=== PATIENT | female | born 1990 | race Caucasian/White ===

== ENCOUNTER 2017-12-11 23:50 | Outpatient (CLI) | payer OTHER ==
[2017-12-12 02:08] LABS: ADD UMIC YES; UR ASCORBIC ACID NEGATIVE (NEGATIVE); UR BACTERIA FEW /HPF (NONE SEEN); UR BILIRUBIN (Dip) NEGATIVE (NEGATIVE); UR BLOOD (Dip) NEGATIVE (NEGATIVE); UR CLARITY CLEAR (CLEAR); UR COLOR STRAW (YELLOW); UR GLUCOSE (Dip) NEGATIVE (NEGATIVE); UR KETONES (Dip) NEGATIVE (NEGATIVE); UR LEUKOCYTE ESTERASE (Dip) 2+ Leu/ul (NEGATIVE); UR NITRITE (Dip) NEGATIVE (NEGATIVE); UR RBC 0 /HPF (0-5); UR SPECIFIC GRAVITY (Dip) 1.004 (1.003-1.030); UR TOTAL PROTEIN (Dip) NEGATIVE (NEGATIVE); UR UROBILINOGEN (Dip) NEGATIVE (NEGATIVE); UR WBC 3 /HPF (0-5)
== END 2017-12-12 01:50 | disposition home or self-care (01) ==
LOC: L-D 23:50 → OBT 23:50 → L-D 12-12 00:11 → OBT 12-12 01:50
DX: O36.8130 Decreased fetal movements, third trimester, not applicable or unspecified (principal); O09.523 Supervision of elderly multigravida, third trimester; Z3A.38 38 weeks gestation of pregnancy
CPT/HCPCS: 76818; 81001; 87086

== ENCOUNTER 2017-12-21 11:28 | Inpatient (IN) | payer OTHER ==
[2017-12-21] MEDS: OXYTOCIN 30 UNITS/LR 500 ML IV ×2 (11:51→12:12)
[2017-12-21] MEDS: LACTATED RINGER'S 1,000 ML IV (11:52)
[2017-12-21] MEDS: IBUPROFEN 600 MG TAB PO ×3 (11:57→23:29)
[2017-12-21] MEDS ORDERED: METHYLERGONOVINE 0.2 MG INJ IM ×2 (12:00→13:30)
[2017-12-21] MEDS ORDERED: CARBOPROST 250 MCG INJ IM ×2 (12:00→13:30)
[2017-12-21] MEDS ORDERED: LIDOCAINE 1% (MPF) 30 ML INJ INJ (12:00)
[2017-12-21] MEDS ORDERED: OXYTOCIN 30 UNITS/LR 500 ML IV ×2 (12:00→13:30)
[2017-12-21] MEDS ORDERED: BUTORPHANOL 2 MG INJ IV (12:00)
[2017-12-21] MEDS ORDERED: MISOPROSTOL 200 MCG TAB PR ×2 (12:00→13:30)
[2017-12-21 12:31] LABS: ADD MAN DIFF? NO
[2017-12-21 12:34] LABS: BASOPHILS % 0.3 % (0.0-2.0); EOSINOPHILS % 0.3 % (0.0-7.0); HEMATOCRIT 37.1 % (37.0-47.0); HEMOGLOBIN 12.3 g/dl (12.0-16.0); LYMPHOCYTES # 3.6 10^3/ul (0.8-2.9); MEAN CORPUSCULAR HEMOGLOBIN 30.5 pg (29.0-33.0); MEAN CORPUSCULAR HGB CONC 33.2 g/dl (32.0-37.0); MEAN CORPUSCULAR VOLUME 92.1 fl (82.0-101.0); MEAN PLATELET VOLUME 11.2 fl (7.4-10.4); MONOCYTES % 6.4 % (0.0-11.0); NEUTROPHIL # 10.8 10^3/ul (1.6-7.5); NEUTROPHILS % 69.4 % (39.0-77.0); PLATELET COUNT 234 10^3/UL (140-415); RED BLOOD COUNT 4.03 10^6/ul (4.20-5.40); RED CELL DISTRIBUTION WIDTH 14.2 % (11.5-14.5)
[2017-12-21 12:34] LABS: WHITE BLOOD COUNT 15.5 10^3/ul (4.8-10.8)
[2017-12-21 13:03] LABS: INR 0.89; PROTIME 12.1 Sec (11.9-14.9); PT RATIO 0.9
[2017-12-21 13:28] LABS: HEPATITIS B SURFACE ANTIGEN NEGATIVE (NEGATIVE)
[2017-12-21] MEDS ORDERED: OXYCODONE/ASPIRIN (4.88/325) TAB PO ×2 (13:30)
[2017-12-21] MEDS ORDERED: ZOLPIDEM 5 MG TAB PO (13:30)
[2017-12-21 15:59] LABS: RAPID PLASMA REAGIN NONREACTIVE (NR)
[2017-12-21] MEDS: LANOLIN 7 GM TUBE TOP (17:59)
[2017-12-21] MEDS: SENNA/DOCUSATE NA (8.6MG/50MG) TAB PO (21:00)
[2017-12-22] MEDS: IBUPROFEN 600 MG TAB PO ×3 (05:40→18:23)
[2017-12-22 08:59] LABS: ADD MAN DIFF? NO
[2017-12-22] MEDS: WITCH HAZEL/GLYCERIN PAD PR (09:00)
[2017-12-22] MEDS: SENNA/DOCUSATE NA (8.6MG/50MG) TAB PO ×2 (09:00→21:14)
[2017-12-22] MEDS: BENZOCAINE 20% 56 ML SPRAY TOP (09:00)
[2017-12-22 09:04] LABS: WHITE BLOOD COUNT 13.6 10^3/ul (4.8-10.8)
[2017-12-22 09:04] LABS: BASOPHIL # 0.1 10^3/ul (0.0-0.1); BASOPHILS % 0.4 % (0.0-2.0); EOSINOPHILS # 0.1 10^3/ul (0.0-0.5); EOSINOPHILS % 0.7 % (0.0-7.0); HEMATOCRIT 30.3 % (37.0-47.0); HEMOGLOBIN 10.1 g/dl (12.0-16.0); LYMPHOCYTES # 2.7 10^3/ul (0.8-2.9); LYMPHOCYTES % 19.4 % (15.0-51.0); MEAN CORPUSCULAR HEMOGLOBIN 30.2 pg (29.0-33.0); MEAN CORPUSCULAR HGB CONC 33.3 g/dl (32.0-37.0); MEAN CORPUSCULAR VOLUME 90.7 fl (82.0-101.0); MEAN PLATELET VOLUME 10.9 fl (7.4-10.4); MONOCYTES % 7.6 % (0.0-11.0); NEUTROPHIL # 9.7 10^3/ul (1.6-7.5); NEUTROPHILS % 71.4 % (39.0-77.0); PLATELET COUNT 174 10^3/UL (140-415); RED BLOOD COUNT 3.34 10^6/ul (4.20-5.40); RED CELL DISTRIBUTION WIDTH 14.1 % (11.5-14.5)
[2017-12-23] MEDS: IBUPROFEN 600 MG TAB PO ×2 (00:01→06:09)
[2017-12-23] MEDS: DIPHTH/TET/ACEL PERTUSS (ADULT) 0.5 ML VIAL IM* (09:00)
[2017-12-23] MEDS: SENNA/DOCUSATE NA (8.6MG/50MG) TAB PO (09:01)
== END 2017-12-23 14:45 | disposition home or self-care (01) | DRG 775 ==
LOC: OBT 11:28 → L-D 11:28 → OBT 11:40 → L-D 11:40 → PP1 13:05
PROVIDERS: Obstetrics & Gynecology
PROC: 10E0XZZ Delivery of Products of Conception, External Approach (ICD-10-PCS; principal; 2017-12-21)
DX: O80 Encounter for full-term uncomplicated delivery (principal); Z3A.39 39 weeks gestation of pregnancy; Z37.0 Single live birth
CPT/HCPCS: 85025; 85610; 85730; 86592; 86850; 86900; 86901; 87340